=== PATIENT | female | born 1960 | race Two or more races ===

== ENCOUNTER 2022-09-04 15:10 | Emergency (ER) | payer OTHER ==
[~2022-09-04] VITALS: Ht 172.7 cm; Wt 103.4 kg
[2022-09-04] MEDS ORDERED: LISINOPRIL10 MG PO (16:05)
[2022-09-05] MEDS ORDERED: [UNRECOGNIZED DRUG - OTHER] (13:33)
[2022-09-05] MEDS ORDERED: METFORMIN HCL500 MG (13:34)
[2022-09-05] MEDS ORDERED: LIPITOR20 MG PO (13:34)
== END 2022-09-04 17:05 | disposition home or self-care (01) ==
LOC: ER 15:10
DX: R10.84 Generalized abdominal pain (principal); K59.00 Constipation, unspecified; K57.30 Diverticulosis of large intestine without perforation or abscess without bleeding; I10 Essential (primary) hypertension

== ENCOUNTER 2022-09-05 13:02 | Emergency (ER) | payer OTHER ==
[~2022-09-05] VITALS: Ht 175.3 cm; Wt 103.4 kg
[~2022-09-05 13:02] MED LIST: LISINOPRIL10 MG PO
[2022-09-05] MEDS ORDERED: [UNRECOGNIZED DRUG - OTHER] (13:33)
[2022-09-05] MEDS ORDERED: LIPITOR20 MG PO (13:34)
[2022-09-05] MEDS ORDERED: METFORMIN HCL500 MG (13:34)
[2022-09-06] MEDS ORDERED: CARAFATE1 GM PO (15:11)
[2022-09-06] MEDS ORDERED: LEVSIN/SL0.125 MG SL (15:11)
[2022-09-06] MEDS ORDERED: PEPCID AC20 MG PO (15:11)
== END 2022-09-05 17:51 | disposition home or self-care (01) ==
LOC: ER 13:02
DX: K29.70 Gastritis, unspecified, without bleeding (principal); E11.9 Type 2 diabetes mellitus without complications; Z79.84 Long term (current) use of oral hypoglycemic drugs; E78.00 Pure hypercholesterolemia, unspecified; I10 Essential (primary) hypertension; K57.30 Diverticulosis of large intestine without perforation or abscess without bleeding

== ENCOUNTER 2022-09-06 09:42 | Emergency (ER) | payer OTHER ==
[~2022-09-06] VITALS: Ht 175.3 cm; Wt 103.4 kg
[~2022-09-06 09:42] MED LIST changes: +LIPITOR20 MG PO; +METFORMIN HCL500 MG; +[UNRECOGNIZED DRUG - OTHER]
[2022-09-06] MEDS ORDERED: LEVSIN/SL0.125 MG SL (15:11)
[2022-09-06] MEDS ORDERED: PEPCID AC20 MG PO (15:11)
[2022-09-06] MEDS ORDERED: CARAFATE1 GM PO (15:11)
== END 2022-09-06 18:05 | disposition home or self-care (01) ==
LOC: ER 09:42
DX: K29.60 Other gastritis without bleeding (principal); R11.2 Nausea with vomiting, unspecified; E11.9 Type 2 diabetes mellitus without complications; Z79.84 Long term (current) use of oral hypoglycemic drugs